=== PATIENT | male | born 1980 | race Caucasian/White ===

== ENCOUNTER 2021-11-12 00:40 | Emergency (ER) | payer MEDICAID ==
[~2021-11-12] VITALS: Ht 182.9 cm; Wt 81.6 kg
[2021-11-12 02:01] LABS: Basophils # (auto) 0 10 ^3/uL (0-0.2); Basophils % (auto) 0.2 % (0.0-2.0); Eosinophils # (auto) 0 10 ^3/uL (0-0.8); Hematocrit 37.9 % (41.0-53.0); Lymphocytes # (auto) 1.6 10 ^3/uL (0.4-5.4); Mean Corpuscular Hemoglobin 31.9 pg (28.0-32.0); Mean Corpuscular Hgb Conc. 34.3 g/dL (32.0-36.0); Mean Corpuscular Volume 92.9 fL (80.0-100.0); Monocytes # (auto) 1.1 10 ^3/uL (0-1.3); Monocytes % (auto) 12.7 % (0.0-12.0); Neutrophils # (auto) 5.8 10 ^3/uL (1.6-8.6); Neutrophils % (auto) 68.1 % (37.0-80.0); Red Blood Cells 4.08 10^6/uL (4.5-5.90); Red Cell Distribution Width 14.7 % (11.8-14.3); White Blood Cell 8.5 10^3/uL (4.4-10.8)
[2021-11-12 02:03] LABS: Albumin 3.7 g/dL (3.4-5.0); Calcium 9.3 mg/dL (8.5-10.1); Potassium 3.2 mmol/L (3.5-5.1)
[2021-11-12 02:05] LABS: BUN/Creatinine Ratio 14.6
[2021-11-12 02:08] LABS: Bilirubin, Total 0.6 mg/dL (0.2-1.0); Total Protein 7.1 g/dL (6.4-8.2)
[2021-11-12 05:00] VITALS: BP 125/92
[2021-11-12] MEDS ORDERED: diazePAM 5 MG TAB PO ONE (05:00)
== END 2021-11-12 05:41 | disposition home or self-care (01) ==
LOC: ER 00:40
DX: F41.9 Anxiety disorder, unspecified (principal); R11.2 Nausea with vomiting, unspecified
CPT/HCPCS: 36415; 80053; 82150; 83690; 85025

== ENCOUNTER 2022-01-05 07:33 | Emergency (ER) | payer MEDICAID ==
[~2022-01-05] VITALS: Ht 182.9 cm; Wt 83.0 kg
[2022-01-05 09:12] VITALS: BP 128/77
[2022-01-05] MEDS ORDERED: CYCL-837 PO (09:38)
[2022-01-05] MEDS ORDERED: IBUP800T27 PO (09:38)
[2022-01-05] MEDS ORDERED: KETOROLAC TROMETH 60MG/2ML VIAL IM ONE (09:45)
== END 2022-01-05 09:56 | disposition home or self-care (01) ==
LOC: ER 07:33
DX: S23.41XA Sprain of ribs, initial encounter (principal); Z90.49 Acquired absence of other specified parts of digestive tract; Z79.1 Long term (current) use of non-steroidal anti-inflammatories (NSAID); Z79.899 Other long term (current) drug therapy; X50.0XXA Overexertion from strenuous movement or load, initial encounter; Y93.89 Activity, other specified; Y92.89 Other specified places as the place of occurrence of the external cause; Y99.8 Other external cause status
CPT/HCPCS: 71101; 96372; 99283; J1885